=== PATIENT | female | born 1975 | race Caucasian/White ===

== ENCOUNTER 2018-04-19 20:18 | Emergency (ER) | payer BC, OTHER ==
--- NOTE | 2018-04-19 20:33 | ER Document Report ---
Addendum entered and electronically signed by MOON FRIEND DO 04/20/18 09:11: Course - Re-evaluation Re-evalutation: 04/20/18 09:11 Patient was reevaluated patient was cleared by psychiatric team upon further consulting with the patient patient denies any suicidal homicidal ideation patient states she feels well to go home family agrees at bedside. Patient will be discharged home - Vital Signs Vital signs: Temp Pulse Resp BP Pulse Ox 98.3 F 94 16 153/97 H 96 04/19/18 23:00 04/20/18 02:00 04/20/18 08:10 04/20/18 08:10 04/20/18 08:10 - Laboratory Result Diagrams: 04/19/18 20:13 04/19/18 20:13 Laboratory results interpreted by me: 04/19/18 04/19/18 04/20/18 20:13 21:20 01:00 Sodium 145.2 H Chloride 109 H Glucose 67 L Urine Blood SMALL H Salicylates < 1.0 L Acetaminophen < 10 L < 10 L Addendum entered and electronically signed by MOON FRIEND DO 04/20/18 09:11: Discharge - Discharge Clinical Impression: Acute alcohol intoxication Qualifiers: Complication of substance-induced condition: with delirium Qualified Code(s): F10.921 - Alcohol use, unspecified with intoxication delirium Overdose Qualifiers: Encounter type: initial encounter Injury intent: undetermined intent Qualified Code(s): T50.904A - Poisoning by unspecified drugs, medicaments and biological substances, undetermined, initial encounter Condition: Stable Disposition: HOME, SELF-CARE Additional Instructions: You have been evaluated by both medical and behavioral health teams and have been deemed appropriate for discharge. You are encouraged to follow up with outpatient services to strengthening coping skills. You have been provided are resource list of area providers including mobile crisis contact information. AT ANY TIME, IF YOUR SYMPTOMS CHANGE SIGNIFICANTLY OR WORSEN OR YOU DEVELOP NEW SYMPTOMS, RETURN TO THE EMERGENCY DEPARTMENT IMMEDIATELY FOR RE-EVALUATION. Referrals: [facility] [Outside] - Follow up as needed HAWK JACKSON PA-C [NO LOCAL MD] - Follow up as needed Addendum entered and electronically signed by HALLEY BROWNING LCSWA 04/20/18 0 8:13: Discharge - Discharge Clinical Impression: Acute alcohol intoxication Qualifiers: Complication of substance-induced condition: with delirium Qualified Code(s): F10.921 - Alcohol use, unspecified with intoxication delirium Overdose Qualifiers: Encounter type: initial encounter Injury intent: undetermined intent Qualified Code(s): T50.904A - Poisoning by unspecified drugs, medicaments and biological substances, undetermined, initial encounter Condition: Stable Disposition: HOME, SELF-CARE Additional Instructions: You have been evaluated by both medical and behavioral health teams and have been deemed appropriate for discharge. You are encouraged to follow up with outpatient services to strengthening coping skills. You have been provided are resource list of area providers including mobile crisis contact information. AT ANY TIME, IF YOUR SYMPTOMS CHANGE SIGNIFICANTLY OR WORSEN OR YOU DEVELOP NEW SYMPTOMS, RETURN TO THE EMERGENCY DEPARTMENT IMMEDIATELY FOR RE-EVALUATION. Referrals: HAWK JACKSON PA-C [NO LOCAL MD] - Follow up as needed [facility] [Outside] - Follow up as needed Original Note: ED General - General Stated Complaint: POSSIBLE OVERDOSE Time Seen by Provider: 04/19/18 20:29 Primary Care Provider: HAWK JACKSON PA-C [NO LOCAL MD] - Follow up as needed - [facility] Notes: Patient is a 42-year-old female that presents to the emergency department for chief complaint of overdose and alcohol ingestion. Patient arrived by EMS from home. EMS was told by family that they are concerned she overdosed on pills. They are not sure what medications patient may have taken. Patient is disoriented and intoxicated and not providing any history. Family not currently at bedside which is limiting my exam. EMS states the only medication they could find in the home was paroxetine which seem to have an appropriate amount of medication left in it. Past Medical History: Depression Past Surgical History: Unknown Social History: Alcohol abuse Family History: Reviewed and noncontributory for presenting illness Allergies: Reviewed, see documented allergy list. REVIEW OF SYSTEMS: PHYSICAL EXAMINATION: Vital signs reviewed, nursing noted reviewed. GENERAL: Appears intoxicated, well-nourished and in no acute distress. HEAD: Atraumatic, normocephalic. EYES: Rotary nystagmus, eyes appear normal, extraocular movements intact, sclera anicteric, conjunctiva are normal. ENT: nares patent, oropharynx clear without exudates. Moist mucous membranes. NECK: Normal range of motion, supple without lymphadenopathy LUNGS: Breath sounds clear to auscultation bilaterally and equal. No wheezes rales or rhonchi. HEART: Regular rate and rhythm without murmurs ABDOMEN: Soft, nontender, normoactive bowel sounds. No rebound, guarding, or rigidity. No masses appreciated. EXTREMITIES: Nontender, good range of motion, no pitting or edema. NEUROLOGICAL: GCS 15 no focal neurological deficits. Moves all extremities spontaneously Motor and sensory grossly intact on exam. PSYCH: Flat affect, intoxicated, incoherent tangential speaking SKIN: Warm, Dry, normal turgor, no rashes or lesions noted on exposed skin Past Medical History - Social History Smoking Status: Unknown if Ever Smoked Family History: Reviewed & Not Pertinent Physical Exam - Vital signs Vitals: Resp Pulse Ox 23 H 97 04/19/18 20:25 04/19/18 20:25 Course - Re-evaluation Re-evalutation: 04/19/18 20:55 Vitals reviewed. Nursing notes reviewed. Patient's family is now at bedside stating that they are not sure if she took any substances other than alcohol. Patient's daughter states that they were in an argument around 2 PM when she got home from school. She states she left the house sometime between 4 and 5 and h er mother was normal and had not been drinking. She did tell other family members that she was drinking alcohol today. Family states that she has never done any illicit drugs or had any gestures of suicide attempt in the past. They do state there is [id number] medication including sleep aids cough and cold remedies at home that she may have ingested. They have attempted to figure out why her tongue is blue but are not sure what blue substance could have been present in the house. 04/19/18 22:30 Patient reevaluated and has shown significant improvement in her total status. She is more awake and is now speaking clearly. She states she took 5 [id number] sleep aids but she is not sure what exactly the medication was. She states she was trying to go to sleep and denies any suicidal ideation. Patient also still denying homicidal ideation. Currently she states she feels tired but has no other complaints. Her workup in the ED is unremarkable. She is still intoxicated and will remain in the emergency room tonight for psych evaluation in the morning when she is sober. She is medically cleared at this time Laboratory 04/19/18 04/19/18 04/19/18 20:13 20:13 21:15 WBC 7.8 RBC 4.13 Hgb 13.1 Hct 38.4 MCV 93 MCH 31.8 MCHC 34.2 RDW 13.2 Plt Count 240 Seg Neutrophils % 55.7 Lymphocytes % 34.5 Monocytes % 6.4 Eosinophils % 2.5 Basophils % 0.9 Absolute Neutrophils 4.3 Absolute Lymphocytes 2.7 Absolute Monocytes 0.5 Absolute Eosinophils 0.2 Absolute Basophils 0.1 VBG pH VBG pCO2 VBG HCO3 VBG Base Excess Sodium 145.2 H Potassium 3.7 Chloride 109 H Carbon Dioxide 25 Anion Gap 11 BUN 10 Creatinine 0.63 Est GFR ( Amer) > 60 Est GFR (Non-Af Amer) > 60 Glucose 67 L Calcium 9.0 Total Bilirubin 0.5 Direct Bilirubin 0.3 Neonat Total Bilirubin Not Reportable Neonat Direct Bilirubin Not Reportable Neonat Indirect Bili Not Reportable AST 27 ALT 21 Alkaline Phosphatase 105 Ammonia 23.9 Total Protein 7.1 Albumin 4.5 Urine Color Urine Appearance Urine pH Ur Specific [place] Urine Protein Urine Glucose (UA) Urine Ketones Urine Blood Urine Nitrite Urine Bilirubin Urine Urobilinogen Ur Leukocyte Esterase Urine WBC (Auto) Urine Bacteria (Auto) Squamous Epi Cells Auto Urine Mucus (Auto) Urine Ascorbic Acid Salicylates < 1.0 L Urine Opiates Screen Urine Methadone Screen Acetaminophen < 10 L Ur Barbiturates Screen Ur Phencyclidine Scrn Ur Amphetamines Screen U Benzodiazepines Scrn Urine Cocaine Screen U Marijuana (THC) Screen Serum Alcohol 168 04/19/18 04/19/18 04/19/18 21:15 21:20 21:20 WBC RBC Hgb Hct MCV MCH MCHC RDW Plt Count Seg Neutrophils % Lymphocytes % Monocytes % Eosinophils % Basophils % Absolute Neutrophils Absolute Lymphocytes Absolute Monocytes Absolute Eosinophils Absolute Basophils VBG pH 7.38 VBG pCO2 45.7 VBG HCO3 26.1 VBG Base Excess 0.5 Sodium Potassium Chloride Carbon Dioxide Anion Gap BUN Creatinine Est GFR ( Amer) Est GFR (Non-Af Amer) Glucose Calcium Total Bilirubin Direct Bilirubin Neonat Total Bilirubin Neonat Direct Bilirubin Neonat Indirect Bili AST ALT Alkaline Phosphatase Ammonia Total Protein Albumin Urine Color COLORLESS Urine Appearance CLEAR Urine pH 7.0 Ur Specific [place] 1.002 Urine Protein NEGATIVE Urine Glucose (UA) NEGATIVE Urine Ketones NEGATIVE Urine Blood SMALL H Urine Nitrite NEGATIVE Urine Bilirubin NEGATIVE Urine Urobilinogen NEGATIVE Ur Leukocyte Esterase NEGATIVE Urine WBC (Auto) 1 Urine Bacteria (Auto) TRACE Squamous Epi Cells Auto 2 Urine Mucus (Auto) RARE Urine Ascorbic Acid NEGATIVE Salicylates Urine Opiates Screen NEGATIVE Urine Methadone Screen NEGATIVE Acetaminophen Ur Barbiturates Screen NEGATIVE Ur Phencyclidine Scrn NEGATIVE Ur Amphetamines Screen NEGATIVE U Benzodiazepines Scrn NEGATIVE Urine Cocaine Screen NEGATIVE U Marijuana (THC) Screen NEGATIVE Serum Alcohol Head CT 04/19/18 20:55 IMPRESSION: No acute intracranial hemorrhage. - Vital Signs Vital signs: Temp Pulse Resp BP Pulse Ox 17 114/80 95 04/19/18 21:50 04/19/18 21:50 04/19/18 21:50 - Laboratory Result Diagrams: 04/19/18 20:13 04/19/18 20:13 Laboratory results interpreted by me: 04/19/18 04/19/18 20:13 21:20 Sodium 145.2 H Chloride 109 H Glucose 67 L Urine Blood SMALL H Salicylates < 1.0 L Acetaminophen < 10 L - EKG Interpretation by Me Additional EKG results interpreted by me: 04/19/18 21:53 Interpreted by myself [id number]: Sinus tachycardia, rate 100, borderline prolonged QT, QTc 501, QT 388, normal axis, no ectopy Discharge - Discharge Clinical Impression: Acute alcohol intoxication Qualifiers: Complication of substance-induced condition: with delirium Qualified Code(s): F10.921 - Alcohol use, unspecified with intoxication delirium Overdose Qualifiers: Encounter type: initial encounter Injury intent: undetermined intent Qualified Code(s): T50.904A - Poisoning by unspecified drugs, medicaments and biological substances, undetermined, initial encounter Condition: Stable Referrals: HAWK JACKSON PA-C [NO LOCAL MD] - Follow up as needed
[2018-04-19] MEDS ORDERED: NORMAL SALINE 1000 ML 1,000 ML IV ONE (20:41)
[2018-04-19] MEDS ORDERED: THIAMINE HCL 100 MG, FOLIC ACID 1 MG in NORMAL SALINE 250 ML IV ONE (20:42)
[2018-04-19 20:55] LABS: ABSOLUTE BASOPHILS # (AUTO) 0.1 10^3/uL (0.0-0.2); ABSOLUTE EOSINOPHILS # (AUTO) 0.2 10^3/uL (0.0-0.6); ABSOLUTE LYMPHOCYTES (AUTO) 2.7 10^3/uL (0.5-4.7); ABSOLUTE MONOCYTES (AUTO) 0.5 10^3/uL (0.1-1.4); ABSOLUTE NEUT (AUTO) 4.3 10^3/uL (1.7-8.2); BASOPHILS % (AUTO) 0.9 % (0-2); EOSINOPHILS % (AUTO) 2.5 % (0-6); HEMATOCRIT 38.4 % (36.0-47.0); HEMOGLOBIN 13.1 g/dL (12.0-15.5); LYMPHOCYTES % (AUTO) 34.5 % (13-45); MEAN CORPUSCULAR HEMOGLOBIN 31.8 pg (27.0-33.4); MEAN CORPUSCULAR HGB CONC 34.2 g/dL (32.0-36.0); MEAN CORPUSCULAR VOLUME 93 fl (80-97); MONOCYTES % (AUTO) 6.4 % (3-13); PLATELET COUNT 240 10^3/uL (150-450); RED BLOOD COUNT 4.13 10^6/uL (3.72-5.28); RED CELL DISTRIBUTION WIDTH 13.2 % (11.5-14.0); SEGMENTED NEUTROPHILS % (AUTO) 55.7 % (42-78); TOTAL CELLS COUNTED % (AUTO) 100 %; WHITE BLOOD COUNT 7.8 10^3/uL (4.0-10.5)
[2018-04-19 21:08] LABS: ALANINE AMINOTRANSFERASE 21 U/L (9-52); ALBUMIN 4.5 g/dL (3.5-5.0); ALCOHOL 168 mg/dL (NONE DETECTED); ALKALINE PHOSPHATASE 105 U/L (38-126); ANION GAP 11 (5-19); ASPARTATE AMINO TRANSFERASE 27 U/L (14-36); BILIRUBIN,DIRECT 0.3 mg/dL (0.0-0.4); BILIRUBIN,TOTAL 0.5 mg/dL (0.2-1.3); BLOOD UREA NITROGEN 10 mg/dL (7-20); CARBON DIOXIDE 25 mmol/L (22-30); CHLORIDE 109 mmol/L (98-107); POTASSIUM 3.7 mmol/L (3.6-5.0); SODIUM 145.2 mmol/L (137-145); TOTAL PROTEIN 7.1 g/dL (6.3-8.2)
[2018-04-19 21:14] LABS: ACETAMINOPHEN < 10 ug/mL (10-30); SALICYLATE < 1.0 mg/dL (2.0-20.0)
[2018-04-19 21:16] LABS: GLUCOSE 67 mg/dL (75-110)
[2018-04-19 21:25] LABS: VENOUS BLOOD BASE EXCESS 0.5 mmol/L; VENOUS BLOOD HCO3 26.1 mmol/L (20-32); VENOUS BLOOD PCO2 45.7 mmHg (35-63); VENOUS BLOOD PH 7.38 (7.30-7.42)
[2018-04-19 21:55] LABS: APPEARANCE,URINE CLEAR; BILIRUBIN,URINE NEGATIVE (NEGATIVE); COLOR,URINE COLORLESS; GLUCOSE, URINE NEGATIVE (NEGATIVE); KETONES,URINE NEGATIVE (NEGATIVE); LEUKOCYTE ESTERASE,URINE NEGATIVE (NEGATIVE); NITRITE,URINE NEGATIVE (NEGATIVE); PROTEIN,URINE NEGATIVE (NEGATIVE); URINE SPECIFIC GRAVITY 1.002; UROBILINOGEN,URINE NEGATIVE mg/dL (<2.0)
[2018-04-19 22:09] LABS: URINE AMPHETAMINES SCREEN NEGATIVE; URINE BARBITURATES SCREEN NEGATIVE; URINE BENZODIAZEPINES SCREEN NEGATIVE; URINE COCAINE SCREEN NEGATIVE; URINE MARIJUANA (THC) SCREEN NEGATIVE; URINE METHADONE SCREEN NEGATIVE; URINE PHENCYCLIDINE SCREEN NEGATIVE
--- NOTE | 2018-04-19 22:09 | RADIOLOGY REPORT (SQ) ---
EXAM DESCRIPTION: CT HEAD WITHOUT IV CONTRAST COMPLETED DATE/TME: 04/19/2018 20:55 CLINICAL HISTORY: 42 years, Female, confusion This exam was performed according to our departmental dose-optimization program which includes automated exposure control, adjustment of the mA and/or kVp according to patient size and/or use of iterative reconstruction technique where applicable. FINDINGS: No acute intracranial hemorrhage, mass effect or midline shift. No extra-axial fluid collections. Ventricles and subarachnoid spaces are preserved. Padilla-white matter differentiation is preserved. The visualized paranasal sinuses and the mastoid air cells are clear. The skull is intact. IMPRESSION: No acute intracranial hemorrhage.
--- NOTE | 2018-04-19 22:11 | EKG REPORT ---
SEVERITY:- BORDERLINE ECG - SINUS TACHYCARDIA BORDERLINE T ABNORMALITIES, ANTERIOR LEADS BORDERLINE PROLONGED QT INTERVAL : Confirmed by: Candace Venegas MD 19-Apr-2018 22:10:32
[2018-04-20 08:13] VITALS: BP 153/97
--- NOTE | 2018-04-21 12:15 | PSYCHOLOGICAL NOTE ---
Psych Note - Psych Note Date seen by psych provider: 04/20/18 Time seen by psych provider: 07:15 Psych Note: Reason for Consult: Possible intentional overdose Patient is a 42-year-old female that presents to the emergency department for chief complaint of overdose and alcohol ingestion. Patient denies intentional overdose reporting that she took 5 of her sleeping pills to get to sleep. She reports that she normally takes "2 or so" thought that taking 5 would not be an issue. She confirms she was drinking and states her tongue was blue because the name of the alcohol was called "blue steals." She confirms she got into an argument with her daughter for denies thoughts of wanting to harm herself or others. She states that she does have a diagnosis of anxiety however does not have an outpatient provider because she "cannot afford it." Patient is alert and orientated to person, place, time and circumstance. Mood is euthymic with congruent affect. Patient denies suicidal and homicidal ideation reporting accidental overdose. Delusions are absent behaviors congruent with an intact reality based presentation i.e. organized and linear thought process. Eye contact is well maintained. Conversational speech is within normal rate, tone and prosody. Intellectual abilities appear to be within the average range. Attention and concentration are currently good. Insight, judgment, impulse control are fair. No medication recommendations at this time 300.00 (F41.9) unspecified anxiety disorder per history provided by patient Family discord with daughter R/O substance abuse Impression\\plan: Patient is cleared from acute psychiatric services. Patient does not meet IVC criteria per [place] GS 122C. Patient discloses taking 5 sleeping pills and attempt to get to sleep faster. She states that she normally takes "2 or so" so thought that 5 would not be an issue. She confirms she was drinking at the time also. Patient denies thoughts of wanting to harm herself or others. She reports she does not have an outpatient provider because she thought she could not afford it; patient has been provided a local resource list of area providers. Clinician conducted psychoeducation. Patient is recommended to receive a substance abuse assessment as patient is demonstrating some characteristics that could indicate misuse of her sleeping medications. Patient is recommended for therapeutic services as she is demonstrating poor coping skills. Dr. Herrera was consulted and the care management of this patient; attending physicians in agreement with recommendations and disposition.
== END 2018-04-20 09:00 | disposition home or self-care (01) ==
LOC: ER 20:18
DX: F10.121 Alcohol abuse with intoxication delirium (principal); T50.904A Poisoning by unspecified drugs, medicaments and biological substances, undetermined, initial encounter; Y92.009 Unspecified place in unspecified non-institutional (private) residence as the place of occurrence of the external cause; R00.0 Tachycardia, unspecified; Z62.820 Parent-biological child conflict
CPT/HCPCS: 93005; 99285; 96361; 96365; 36415; 80307 ×4; 82140; 85025; 80053; 81001; 82803; 70450; 93010; J3490; J3411; J7030; J7050

== ENCOUNTER 2019-11-22 04:41 | Emergency (ER) | payer OTHER ==
[2019-11-22 05:12] VITALS: BP 126/91
[2019-11-22 05:52] LABS: ABSOLUTE BASOPHILS # (AUTO) 0.1 10^3/uL (0.0-0.2); ABSOLUTE EOSINOPHILS # (AUTO) 0.1 10^3/uL (0.0-0.6); ABSOLUTE LYMPHOCYTES (AUTO) 2.5 10^3/uL (0.5-4.7); ABSOLUTE MONOCYTES (AUTO) 0.7 10^3/uL (0.1-1.4); ABSOLUTE NEUT (AUTO) 7.7 10^3/uL (1.7-8.2); BASOPHILS % (AUTO) 1.1 % (0-2); EOSINOPHILS % (AUTO) 0.5 % (0-6); HEMATOCRIT 38.6 % (36.0-47.0); HEMOGLOBIN 13.1 g/dL (12.0-15.5); LYMPHOCYTES % (AUTO) 22.9 % (13-45); MEAN CORPUSCULAR HEMOGLOBIN 31.1 pg (27.0-33.4); MEAN CORPUSCULAR VOLUME 92 fl (80-97); MONOCYTES % (AUTO) 6.6 % (3-13); PLATELET COUNT 401 10^3/uL (150-450); RED BLOOD COUNT 4.21 10^6/uL (3.72-5.28); RED CELL DISTRIBUTION WIDTH 14.9 % (11.5-14.0); SEGMENTED NEUTROPHILS % (AUTO) 68.9 % (42-78); TOTAL CELLS COUNTED % (AUTO) 100 %; WHITE BLOOD COUNT 11.1 10^3/uL (4.0-10.5)
[2019-11-22 06:11] LABS: ALBUMIN 4.9 g/dL (3.5-5.0); ALKALINE PHOSPHATASE 161 U/L (38-126); ANION GAP 12 (5-19); ASPARTATE AMINO TRANSFERASE 29 U/L (14-36); BILIRUBIN,DIRECT 0.4 mg/dL (0.0-0.4); BILIRUBIN,TOTAL 0.6 mg/dL (0.2-1.3); BLOOD UREA NITROGEN 14 mg/dL (7-20); CALCIUM 10.1 mg/dL (8.4-10.2); CARBON DIOXIDE 25 mmol/L (22-30); CHLORIDE 105 mmol/L (98-107); GLUCOSE 120 mg/dL (75-110); POTASSIUM 4.8 mmol/L (3.6-5.0); TOTAL PROTEIN 8.3 g/dL (6.3-8.2)
== END 2019-11-22 06:51 | disposition left against medical advice (07) ==
LOC: ER 04:41
DX: Z53.21 Procedure and treatment not carried out due to patient leaving prior to being seen by health care provider (principal)
CPT/HCPCS: 36415; 80053; 83690; 85025